=== PATIENT | female | born 1995 | race Caucasian/White ===

== ENCOUNTER 2022-09-18 14:47 | Emergency (ER) | payer OTHER ==
[~2022-09-18] VITALS: Ht 177.8 cm; Wt 91.0 kg
[2022-09-18 15:28] VITALS: BP 119/81
[2022-09-18] MEDS ORDERED: CEPH500C2 MT (16:25)
[2022-09-18] MEDS ORDERED: SULF1TAB48 MT (16:25)
[2022-09-18] MEDS ORDERED: PERM60CR4 TP (16:25)
== END 2022-09-18 16:32 | disposition home or self-care (01) ==
LOC: ER 15:04
DX: B85.2 Pediculosis, unspecified (principal); L03.116 Cellulitis of left lower limb; L02.416 Cutaneous abscess of left lower limb
CPT/HCPCS: 99283